=== PATIENT | male | born 1970 | race Caucasian/White ===

== ENCOUNTER 2023-11-21 09:57 | Observation (INO) | payer BC ==
--- NOTE | 2023-11-21 10:47 | ED ---
Abdominal Pain HPI - General Chief Complaint: Abdominal Pain Stated Complaint: Abd pain Time Seen by Provider: 11/21/23 10:02 Source: patient, RN notes reviewed Mode of arrival: EMS Limitations: no limitations - History of Present Illness Initial Comments: This is a 53-year-old male who presents to the emergency department as a transfer from [facility] for further evaluation of possible malignancy. He presented to [facility] this morning for right flank pain that began 2-3 days ago. It started as a dull aching sensation that seemed to continue getting worse. Pain began to radiate down into the right groin region. Denies any nausea/vomiting, urinary symptoms, or changes in bowel habits. States that when he underwent workup there, he had an elevated white blood cell count and CT scan findings concerning for lymphoma. They compared the CT scan with one that he had done in 2019 revealing mesenteric and retroperitoneal lymphadenopathy concerning for metastatic disease or lymphoma. Patient underwent a PET scan after those results, which was negative for any sign of malignancy. Given the concerning findings on today's imaging as well as leukocytosis with predominantly lymphocytes, there is concern about today's findings being related to lymphoma. Patient requested a more immediate hem/onc consultation, and was subsequently transferred here for further evaluation. Patient was given Toradol by EMS on route, which is effectively controlling his pain. MD Complaint: abdominal pain, flank pain - Related Data Home Medications Medication Instructions Recorded Confirmed No Known Home Medications 11/21/23 11/21/23 Allergies Allergy/AdvReac Type Severity Reaction Status Date / Time No Known Allergies Allergy Verified 11/21/23 11:44 Review of Systems ROS Statement: Those systems with pertinent positive or pertinent negative responses have been documented in the HPI. ROS Other: All systems not noted in ROS Statement are negative. Past Medical History Past Medical History: Hypertension Additional Past Medical History / Comment(s): sinus issues, pre diabetes, History of Any Multi-Drug Resistant Organisms: None Reported Past Surgical History: No Surgical Hx Reported Past Psychological History: No Psychological Hx Reported Smoking Status: Never smoker Past Alcohol Use History: Occasional Past Drug Use History: None Reported General Exam Limitations: no limitations General appearance: alert, in no apparent distress Head exam: Present: atraumatic, normocephalic, normal inspection Respiratory exam: Present: normal lung sounds bilaterally. Absent: respiratory distress, wheezes, rales, rhonchi, stridor Cardiovascular Exam: Present: regular rate, normal rhythm, normal heart sounds. Absent: systolic murmur, diastolic murmur, rubs, gallop, clicks GI/Abdominal exam: Present: soft, normal bowel sounds. Absent: distended, tenderness, guarding, rebound, rigid Back exam: Present: CVA tenderness (R). Absent: CVA tenderness (L) Neurological exam: Present: alert, oriented X3, CN II-XII intact Psychiatric exam: Present: normal affect, normal mood Skin exam: Present: warm, dry, intact, normal color. Absent: rash Course Vital Signs 11/21/23 11/21/23 10:01 13:35 Temperature 97.9 F Pulse Rate 70 82 Respiratory 18 16 Rate Blood Pressure 130/84 125/87 O2 Sat by Pulse 98 97 Oximetry Medical Decision Making - Medical Decision Making This is a 53-year-old male who presents to the emergency department for right flank pain. Was pt. sent in by a medical professional or institution? @ -[facility] Did you speak to anyone other than the patient for history? @ -No Did you review nursing and triage notes? @ -Yes, and I agree, it is accurate with regards to the patient's symptoms. Were old charts reviewed? @ -Outside records sent with the patient from [facility]. Lab work remarkable for a WBC of 25.3 and 74% lymphocytes. CT scan of the abdomen/pelvis from today demonstrates extensive abdominal mesenteric retroperitoneal and bilateral groin lymphadenopathy concerning for neoplasm such as lymphoma. There was no evidence of hydronephrosis or hydroureter. Differential Diagnosis? @ -Differential Flank Pain: UTI, pyelonephritis, kidney stone, musculoskeletal, pancreatitis, cholecystitis, this is not meant to be an all-inclusive list. EKG interpreted by me (3pts min.)? @ -Not obtained X-rays interpreted by me (1pt min.)? @ -Not obtained CT interpreted by me (1pt min.)? @ -Not obtained - performed at outside facility U/S interpreted by me (1pt. min.)? @ -Not obtained What testing was considered but not performed? (CT, X-rays, U/S, labs)? Why? @ -None What meds were considered but not given? Why? @ -None Did you discuss the management of the patient with other professionals? @ -Yes, Dr. Feliz, who accepts the patient for admission. Did you reconcile home meds? @ -Yes Was smoking cessation discussed for >3mins.? @ -No Was critical care preformed (if so, how long)? @ -No Were there social determinants of health that impacted care today? How? (Homelessness, low income, unemployed, alcoholism, drug addiction, transportation, low edu. Level, literacy, decrease access to med. care, long-term, rehab)? @ -No Was there de-escalation of care discussed even if they declined? (Discuss DNR or withdrawal of care, Hospice)? @ -No What co-morbidities impacted this encounter? (DM, HTN, Smoking, COPD, CAD, Cancer, CVA, Hep., AIDS, mental health diagnosis, sleep apnea, morbid obesity)? @ -HTN Was patient admitted / discharged? @ -Admitted. Outside records sent with the patient from [facility] were thoroughly reviewed. Imaging sent with the patient was also scanned into the system for review. Patient will be admitted for hem/onc evaluation related to abnormal CT scan findings concerning for lymphoma. Patient admitted to medicine and consultation for hem/onc was placed. Lab work and UA ordered for baseline in our system. Results pending at the time of admission. Undiagnosed new problem with uncertain prognosis? @ -None Drug Therapy requiring intensive monitoring for toxicity (Heparin, Nitro, Insulin, Cardizem)? @ -None Were any procedures done? @ -None Diagnosis/symptom? @ -Mesenteric lymphadenopathy, diffuse lymphadenopathy Acute, or Chronic, or Acute on Chronic? @ -Acute Uncomplicated (without systemic symptoms) or Complicated (systemic symptoms)? @ -Complicated Side effects of treatment? @ -None Exacerbation, Progression, or Severe Exacerbation] @ -Not applicable Poses a threat to life or bodily function? @ -Yes, this could be life threatening if it is related to malignancy such as lymphoma. This case was discussed in detail with the attending ED physician, Dr. Brown. Presentation, findings, and treatment plan discussed in detail as well. - Lab Data Result diagrams: 11/21/23 10:27 11/21/23 10:27 Lab Results 11/21/23 11/21/23 11/21/23 Range/Units 10:27 10: 10:27 WBC 23.3 H (3.8-10.6) k/uL RBC 5.44 (4.30-5.90) m/uL Hgb 16.7 (13.0-17.5) gm/dL Hct 48.5 (39.0-53.0) % MCV 89.2 (80.0-100.0) fL MCH 30.7 (25.0-35.0) pg MCHC 34.4 (31.0-37.0) g/dL RDW 13.0 (11.5-15.5) % Plt Count 157 (150-450) k/uL MPV 9.4 Neutrophils % (Manual) 17 % Lymphocytes % (Manual) 81 % Monocytes % (Manual) 1 % Eosinophils % (Manual) 1 % Neutrophils # (Manual) 3.96 (1.3-7.7) k/uL Lymphocytes # (Manual) 18.87 H (1.0-4.8) k/uL Monocytes # (Manual) 0.23 (0-1.0) k/uL Eosinophils # (Manual) 0.23 (0-0.7) k/uL Nucleated RBCs 0 (0-0) /100 WBC Manual Slide Review Performed Pathologist Review See comment A Sodium 138 (137-145) mmol/L Potassium 4.3 (3.5-5.1) mmol/L Chloride 110 H (98-107) mmol/L Carbon Dioxide 22 (22-30) mmol/L Anion Gap 6 mmol/L BUN 14 (9-20) mg/dL Creatinine 0.56 L (0.66-1.25) mg/dL Est GFR (CKD-EPI)AfAm >90 (>60 ml/min/1.73 sqM) Est GFR (CKD-EPI)NonAf >90 (>60 ml/min/1.73 sqM) Glucose 106 H (74-99) mg/dL Calcium 8.8 (8.4-10.2) mg/dL Total Bilirubin 0.9 (0.2-1.3) mg/dL AST 26 (17-59) U/L ALT 22 (4-49) U/L Alkaline Phosphatase 72 (38-126) U/L Lactate Dehydrogenase (120-246) U/L Total Protein 6.8 (6.3-8.2) g/dL Albumin 4.1 (3.5-5.0) g/dL Urine Color Yellow Urine Appearance Cloudy (Clear) Urine pH 5.5 (5.0-8.0) Ur Specific Murchison 1.029 (1.001-1.035) Urine Protein Negative (Negative) Urine Glucose (UA) Negative (Negative) Urine Ketones Negative (Negative) Urine Blood Negative (Negative) Urine Nitrite Negative (Negative) Urine Bilirubin Negative (Negative) Urine Urobilinogen <2.0 (<2.0) mg/dL Ur Leukocyte Esterase Negative (Negative) Urine WBC 1 (0-5) /hpf Ur Squamous Epith Cells <1 (0-4) /hpf Urine Mucus Moderate H (None) /hpf 11/21/23 Range/Units 10:27 WBC (3.8-10.6) k/uL RBC (4.30-5.90) m/uL Hgb (13.0-17.5) gm/dL Hct (39.0-53.0) % MCV (80.0-100.0) fL MCH (25.0-35.0) pg MCHC (31.0-37.0) g/dL RDW (11.5-15.5) % Plt Count (150-450) k/uL MPV Neutrophils % (Manual) % Lymphocytes % (Manual) % Monocytes % (Manual) % Eosinophils % (Manual) % Neutrophils # (Manual) (1.3-7.7) k/uL Lymphocytes # (Manual) (1.0-4.8) k/uL Monocytes # (Manual) (0-1.0) k/uL Eosinophils # (Manual) (0-0.7) k/uL Nucleated RBCs (0-0) /100 WBC Manual Slide Review Pathologist Review Sodium (137-145) mmol/L Potassium (3.5-5.1) mmol/L Chloride (98-107) mmol/L Carbon Dioxide (22-30) mmol/L Anion Gap mmol/L BUN (9-20) mg/dL Creatinine (0.66-1.25) mg/dL Est GFR (CKD-EPI)AfAm (>60 ml/min/1.73 sqM) Est GFR (CKD-EPI)NonAf (>60 ml/min/1.73 sqM) Glucose (74-99) mg/dL Calcium (8.4-10.2) mg/dL Total Bilirubin (0.2-1.3) mg/dL AST (17-59) U/L ALT (4-49) U/L Alkaline Phosphatase (38-126) U/L Lactate Dehydrogenase 262 H (120-246) U/L Total Protein (6.3-8.2) g/dL Albumin (3.5-5.0) g/dL Urine Color Urine Appearance (Clear) Urine pH (5.0-8.0) Ur Specific M[place] (1.001-1.035) Urine Protein (Negative) Urine Glucose (UA) (Negative) Urine Ketones (Negative) Urine Blood (Negative) Urine Nitrite (Negative) Urine Bilirubin (Negative) Urine Urobilinogen (<2.0) mg/dL Ur Leukocyte Esterase (Negative) Urine WBC (0-5) /hpf Ur Squamous Epith Cells (0-4) /hpf Urine Mucus (None) /hpf - Radiology Data Radiology results: report reviewed, image reviewed Disposition Clinical Impression: Mesenteric lymphadenopathy, Diffuse lymphadenopathy Disposition: ADMITTED IP TO THIS [facility] Time of Disposition: 11:12
[2023-11-21 10:48] LABS: ALT 22 U/L (4-49); AST 26 U/L (17-59); African American GFR (CKD) >90 (>60 ml/min/1.73 sqM); Albumin 4.1 g/dL (3.5-5.0); Alkaline Phosphatase 72 U/L (38-126); Anion Gap 6 mmol/L; Blood Urea Nitrogen 14 mg/dL (9-20); Calcium 8.8 mg/dL (8.4-10.2); Carbon Dioxide 22 mmol/L (22-30); Chloride 110 mmol/L (98-107); Glucose 106 mg/dL (74-99); Non-African American GFR(CKD) >90 (>60 ml/min/1.73 sqM); Potassium 4.3 mmol/L (3.5-5.1); Sodium 138 mmol/L (137-145); Total Bilirubin 0.9 mg/dL (0.2-1.3); Total Protein 6.8 g/dL (6.3-8.2)
[2023-11-21 10:50] LABS: HCT 48.5 % (39.0-53.0); HGB 16.7 gm/dL (13.0-17.5); MCH 30.7 pg (25.0-35.0); MCHC 34.4 g/dL (31.0-37.0); MCV 89.2 fL (80.0-100.0); Mean Platelet Volume 9.4; Platelet Count 157 k/uL (150-450); RBC 5.44 m/uL (4.30-5.90); WBC 23.3 k/uL (3.8-10.6)
[2023-11-21] MEDS ORDERED: ONDANSETRON 4 MG/2 ML VIAL IVP PRN (11:13)
[2023-11-21] MEDS ORDERED: ACETAMINOPHEN TAB 325 MG TAB PO PRN (11:13)
[2023-11-21] MEDS ORDERED: NALOXONE 0.4 MG/ML 1 ML VIAL IV PRN (11:13)
[2023-11-21] MEDS ORDERED: KETOROLAC 15 MG/ML 1 ML VIAL IVP PRN (11:13)
[2023-11-21] MEDS ORDERED: MORPHINE SULFATE 4 MG/ML SYRINGE IV PRN (11:13)
[2023-11-21 12:15] LABS: Appearance,Urine Cloudy (Clear); Bilirubin,Urine Negative (Negative); Blood,Urine Negative (Negative); Color,Urine Yellow; Glucose,Urine (UA) Negative (Negative); Ketones,Urine Negative (Negative); Leukocyte Esterase,Urine Negative (Negative); Mucus,Urine Moderate /hpf; Nitrite,Urine Negative (Negative); PH, Urine 5.5 (5.0-8.0); Protein,Urine Negative (Negative); Specific Gravity,Urine 1.029 (1.001-1.035); Squamous Epithelial Cell,Urine <1 /hpf (0-4); Urobilinogen,Urine <2.0 mg/dL (<2.0); WBC,Urine 1 /hpf (0-5)
[2023-11-21 13:13] LABS: Eosinophils # (M) 0.23 k/uL (0-0.7); Lymphocytes # (M) 18.87 k/uL (1.0-4.8); Monocytes # (M) 0.23 k/uL (0-1.0); Neutrophils # (M) 3.96 k/uL (1.3-7.7); Neutrophils % (M) 17 %; Nucleated Red Blood Cells 0 /100 WBC (0-0); Total Cells Counted 100
[2023-11-21] MEDS ORDERED: IOPAMIDOL CONTRAST (ORAL USE) VIAL PO PRN (16:24)
[2023-11-21] MEDS: HEPARIN SODIUM,PORCINE 5,000 UNIT/ML 1 ML VIAL SQ SCH (16:30)
[2023-11-21] MEDS: FAMOTIDINE 20 MG TAB PO SCH (20:11)
--- NOTE | 2023-11-21 22:52 | P.HPIM ---
History of Present Illness H&P Date: 11/21/23 Chief Complaint: Right flank pain Patient is a 53-year-old male with a past medical history of hypertension, diet- controlled diabetes type 2 was transferred from [facility] due to CT findings of extensive abdominal lymphadenopathy/possible malignancy. Patient presented to [facility] due to complaints of right sided back pain below the rib cage and across the right flank and groin region. Patient has been having pain for the past 2 to 3 days. Dull aching sensation and continues to get worse which made him go to ER. Patient had CT of the abdomen pelvis without contrast showed numerous enlarged lymph nodes up to 1.7 cm involving the mesentery, retroperitoneal and inguinal lymph nodes concerning for malignancy/lymphoma. No evidence of hydronephrosis. Patient otherwise denies any complaints of fever or chills. Denies any night sweats. No recent weight loss. Denies any dysuria or hematuria. No cough or sputum production. No nausea vomiting or abdominal pain or diarrhea. Denies any recent illnesses. Patient did have prior history of COVID-19 infection. Patient states that he had a CT of the abdomen pelvis at [facility] in 2019 which was showing mesenteric and retroperitoneal lymphadenopathy concerning for malignancy. Patient underwent PET scan and was told it was negative for any signs of malignancy. Patient also found to have elevated WBC count at 23.3 predominantly lymphocytes. Patient was sent to [facility] ER to be evaluated by oncology and further management. Laboratory data showed WBC 23.3 hemoglobin 16.7 and platelets 157 and lymphocytes 18.87. Sodium 138 potassium 4.3 chloride 110 bicarb is 22 BUN 14 and creatinine 0.56 and blood sugar 106 and LDH 262 AST 26 ALT 22 alk phos 72 and urinalysis negative for infection. Review of Systems Constitutional: Patient denies any fever or chills . no Generalized weakness. Denies any night sweats. No loss of weight. Abdomen: Patient denied any nausea or vomiting. Patient does have right flank pain, back pain and groin pain. No diarrhea. Cardiovascular: Patient denies any chest pain or short of breath no palpitations. Respiratory: patient denied any cough . no sputum production. No shortness of breath Neurologic: Patient denied any numbness or tingling or headache. Musculoskeletal: Patient denies any complaints of joint swelling or deformity. Skin: Negative Psychiatric: Negative Endocrine: No heat or cold intolerance. No recent weight gain. Genitourinary: No dysuria or hematuria. All other 14 point ROS negative except the above Past Medical History Past Medical History: Hypertension Additional Past Medical History / Comment(s): sinus issues, pre diabetes, History of Any Multi-Drug Resistant Organisms: None Reported Past Surgical History: No Surgical Hx Reported Past Psychological History: No Psychological Hx Reported Smoking Status: Never smoker Past Alcohol Use History: Occasional Past Drug Use History: None Reported Medications and Allergies Home Medications Medication Instructions Recorded Confirmed Type No Known Home Medications 11/21/23 11/21/23 History Allergies Allergy/AdvReac Type Severity Reaction Status Date / Time No Known Allergies Allergy Verified 11/21/23 11:44 Physical Exam Vitals: Vital Signs Temp Pulse Resp BP Pulse Ox 11/21/23 13:35 82 16 125/87 97 11/21/23 10:01 97.9 F 70 18 130/84 98 Intake and Output 11/20/23 11/21/23 11/21/23 22:59 06:59 14:59 Other: Weight 95.254 kg PHYSICAL EXAMINATION: Patient is lying in the bed comfortably, no acute distress, awake alert and oriented.. HEENT: Normocephalic. Neck is supple. Pupils reactive. Nostrils clear. Oral cavity is moist. Neck reveals no JVD, carotid bruits, or thyromegaly. CHEST EXAMINATION: Trachea is central. Symmetrical expansion. Bibasilar diminished sounds. No wheezing or rhonchi.. CARDIAC: Normal S1, S2 with no gallops. No murmurs ABDOMEN: Soft. Bowel sounds present. Mild right flank tenderness.. No organomegaly. No abdominal bruits. Extremities: reveal no edema. No clubbing or cyanosis Neurologically awake, alert, oriented x3 with well-coordinated movements. No f ocal deficits noted Skin: No rash or skin lesions. Psychiatric: Coperative. Nonsuicidal, Musculoskeletal: No joint swelling or deformity. Normal range of motion. Results CBC & Chem 7: 11/21/23 10:27 11/21/23 10:27 Labs: Abnormal Lab Results - Last 24 Hours (Table) 11/21/23 11/21/23 11/21/23 Range/Units 10:27 10:27 10:27 WBC 23.3 H (3.8-10.6) k/uL Lymphocytes # (Manual) 18.87 H (1.0-4.8) k/uL Chloride 110 H (98-107) mmol/L Creatinine 0.56 L (0.66-1.25) mg/dL Glucose 106 H (74-99) mg/dL Urine Mucus Moderate H (None) /hpf Thrombosis Risk Factor Assmnt - DVT/VTE Prophylaxis DVT/VTE Prophylaxis: Pharmacologic Prophylaxis ordered Assessment and Plan Assessment: Right sided back pain, flank pain radiating down to groin with extensive mesenteric, retroperitoneal and inguinal lymphadenopathy along with leukocytosis with predominant lymphocytes. Concerning for malignancy/lymphoma. Prior history of abdominal lymphadenopathy and PET scan. Patient was told neg ative for malignancy. Hypertension Diet-controlled diabetes GI and DVT prophylaxis. With PPI and heparin subcu Plan: Patient will be continued on pain management. Continue with gentle IV hydration. Was seen by oncology and recommended CT abdomen pelvis with contrast and CT neck, chest with contrast. Urinalysis is negative for infection. Continue to follow closely. Discussed with the family at bedside in detail. Time with Patient: Greater than 30
--- NOTE | 2023-11-21 22:58 | P.CONS ---
History of Present Illness - Reason for Consult Consult date: 11/21/[address] Requesting physician: Joie Corona - Chief Complaint back pain - History of Present Illness This is a 53-year-old male who presents to the emergency department as a transfer from [facility] for further evaluation of possible ma lignancy noted on CT scan. He presented to [facility] for right lower/mid back pain that has been persisting over the last 1 week, but began to become severe over the last 24 hours. He initially thought he pulled a muscle in his back at work but became worried when pain began to worsen. Denies abdominal pain, n/v/d, fever and chills. Denies bowel changes. Denies urinary complaints. Patient had CT AP w/o contrast at [place] showing abnormal abdominal lymphadenopathy, with leukocytosis and lymphocytosis noted on CBC at which time he was transferred to [facility] for further evaluation. Of note patient states in [address] scan which revealed mesenteric and retroperitoneal lympha denopathy that was concerning for metastatic disease or lymphoma. He subsequently underwent PET CT but per pt scan was negative and has not had f/u for the same since. He denies constitutional symptoms of unintentional weight loss and night sweats. Denies personal history of cancer. There is family history of cancer. Sister had breast cancer and uncle had throat cancer. CBC on admission revealed WBC 23.3, Hgb 16.7. plt 157,000. Differential revealed lymphocytosis at 18.8. Pathologist notes reported increased smudge cells. Review of Systems 10 point ROS is negative except as stated in the HPI Past Medical History Past Medical History: Hypertension Additional Past Medical History / Comment(s): sinus issues, pre diabetes, History of Any Multi-Drug Resistant Organisms: None Reported Past Surgical History: No Surgical Hx Reported Past Psychological History: No Psychological Hx Reported Smoking Status: Never smoker Past Alcohol Use History: Occasional Past Drug Use History: None Reported Medications and Allergies Home Medications Medication Instructions Recorded Confirmed Type No Known Home Medications 11/21/23 11/21/23 History Allergies Allergy/AdvReac Type Severity Reaction Status Date / Time No Known Allergies Allergy Verified 11/21/23 11:44 Physical Exam Vitals: Vital Signs Temp Pulse Resp BP Pulse Ox 11/21/23 10:01 97.9 F 70 18 130/84 98 Intake and Output 11/20/23 11/21/23 11/21/23 22:59 06:59 14:59 Other: Weight 95.254 kg - Constitutional General appearance: average body habitus, no acute distress - EENT Eyes: anicteric sclerae ENT: hearing grossly normal - Neck Neck: no lymphadenopathy - Respiratory Respiratory: bilateral: CTA - Cardiovascular Rhythm: regular Heart sounds: normal: S1, S2 - Gastrointestinal General gastrointestinal: no organomegaly, soft, no tenderness - Genitourinary small palpable lymph node in left groin Male genitourinary: left inguinal lymphadenopathy - Integumentary Integumentary: no cyanotic, no jaundiced - Neurologic Neurologic: CNII-XII intact - Musculoskeletal Musculoskeletal: strength equal bilaterally - Psychiatric Psychiatric: A&O x's 3 Results CBC & Chem 7: 11/21/23 10:27 11/21/23 10:27 Labs: Abnormal Lab Results - Last 24 Hours (Table) 11/21/23 11/21/23 11/21/23 Range/Units 10:27 10:27 10:27 WBC 23.3 H (3.8-10.6) k/uL Chloride 110 H (98-107) mmol/L Creatinine 0.56 L (0.66-1.25) mg/dL Glucose 106 H (74-99) mg/dL Urine Mucus Moderate H (None) /hpf CT scan - abdomen: report reviewed CT scan - pelvis: report reviewed Assessment and Plan (1) Mesenteric lymphadenopathy Current Visit: Yes Status: Acute Priority: High Code(s): R59.0 - LOCALIZED ENLARGED LYMPH NODES SNOMED Code(s): 310882050 (2) Lymphocytosis Current Visit: Yes Status: Acute Priority: High Code(s): D72.820 - LYMPHOCYTOSIS (SYMPTOMATIC) SNOMED Code(s): 47578830 Plan: Lymphadenopathy/Luekocytosis -Presented c/o right lower/mid back pain. CT AP w/o contrast at [facility] showed abnormal abdominal lymphadenopathy, with leukocytosis and lymphocytosis noted on CBC. Of note patient states in [address] scan which revealed mesenteric and retroperitoneal lymphadenopathy that was concerning for metastatic disease or lymphoma. He subsequently underwent PET CT but per pt scan was negative and has not had f/u for the same since. Denies constitutional symptoms of unintentional weight loss and night sweats. Denies personal history of cancer. There is family history of cancer. Sister had breast cancer and uncle had throat cancer. -CBC on admission revealed WBC 23.3, Hgb 16.7. plt 157,000. Differential revealed lymphocytosis, with absolute lymphocytes of 18.8. Pathologist notes reported increased smudge cells. Differential includes CLL vs lymphoma -Results and concerns for malignancy were discussed with patient and family -Will obtain CT neck and CAP with contrast for further evaluation -LDH and B and T cell flow cytometry ordered -Will provide further recommendations pending workup Attests: I have seen and examined pt, performed H&P, developed impression and plan of care. Discussed with dictator. Agree with documentation, dictated as a scribe.
[2023-11-21] MEDS: SODIUM CHLORIDE 0.9% 1,000 ML IV SCH (23:06)
--- NOTE | 2023-11-22 08:31 | CT ---
EXAMINATION TYPE: CT abdomen pelvis w con DATE OF EXAM: 11/21/2023 COMPARISON: HISTORY: abnormal abd. lymphadenopathy CT DLP: 2093.1 mGycm CONTRAST: CT scan of the abdomen and pelvis is performed with Oral Contrast and with IV Contrast, patient injec jania with 100 cc mL of Isovue 300. FINDINGS: LUNG BASES-: No visible nodule. No infiltrate. LIVER/GB: No calcified gallstones. No space occupying hepatic lesion. Biliary tree is of normal ca liber. PANCREAS: No inflammation. No distinct mass. SPLEEN: The spleen is enlarged with AP maximal dimension of 14.6 cm. ADRENALS: No nodule. No thickening. KIDNEYS/BLADDER: No hydronephrosis. No nephrolithiasis. No distinct renal mass. Urinary bladder g rossly unremarkable. BOWEL: Normal appendix. Normal bowel caliber. No inflammation. GENITAL ORGANS: No gross abnormality. LYMPH NODES: Multiple enlarged mesenteric lymph nodes measuring up to 2.5 cm. Periportal adenopathy m easuring up to 1.6 cm. Para-aortic adenopathy measuring up to 2 cm. Aorto intracaval adenopathy measu ring up to 1.7 cm. Retrocaval adenopathy measuring up to 2 cm. Adenopathy extends up to the level of the aortic bifurcation. Mildly prominent lymph node right common iliac chain measuring 1.1 cm. Caisson Worker al iliac chain adenopathy on the left measuring 1.2 cm. External iliac chain adenopathy and the right measuring 2.4 cm and on the left 1.7 cm. Subcentimeter lymph nodes seen within the inguinal regions bilaterally. AORTA: No significant abnormality. OSSEOUS STRUCTURES: No significant abnormality is seen. OTHER: Fat-containing hernias of the bilateral inguinal regions. IMPRESSION: 1. Adenopathy and splenomegaly as discussed. Correlate for lymphoma or leukemia.
--- NOTE | 2023-11-22 08:41 | CT ---
EXAMINATION TYPE: CT neck chest w con DATE OF EXAM: 11/21/2023 COMPARISON: None HISTORY: lymphadenopathy CT DLP: 1847.1 mGycm CONTRAST: CT scan of the neck is performed with IV Contrast, patient injected with 100cc mL of Isovue 300. Contrast enhanced CT of the neck was performed from the skull base through the lung apices. AIRWAY: The supraglottic, glottic, and subglottic portions of the airway appear patent and free of mass. SALIVARY GLANDS: The submandibular and parotid glands are free of mass or inflammatory process. THYROID GLAND: No nodules or masses seen. LYMPH NODES: Adenopathy right internal jugular chain with an enlarged lymph node measuring 1.3 cm. 1. 1 cm enlarged lymph node left internal jugular chain. Submandibular adenopathy noted on the right sheldon suring 1.7 cm with multiple sub-1 cm lymph nodes about the left submandibular gland. Posterior triang le lymph nodes measuring up to 9 mm. Multiple bilateral supraclavicular lymph nodes all measuring les s than 1 cm. LUNG APICES: No nodule or mass is seen. OTHER: Vascular structures are patent. No significant degenerative change of the cervical spine. N o abscess seen. IMPRESSION: 1. Adenopathy as discussed. EXAMINATION TYPE: CT neck chest w con DATE OF EXAM: 11/21/2023 COMPARISON: None HISTORY: lymphadenopathy CT DLP: 1847.1 mGycm Automated exposure control for dose reduction was used. CONTRAST: CT scan of the chest is performed with IV Contrast, patient injected with 100cc mL of Isovue 300. FINDINGS: LUNGS: The lungs are grossly clear, there is no concerning parenchymal mass or nodule identified. T here is no pleural effusion or pneumothorax seen. The tracheobronchial tree is patent. MEDIASTINUM: There is subcarinal adenopathy measuring 1.9 cm. Precarinal adenopathy noted measuring 1 .4 cm. Low right paratracheal adenopathy measuring 1.2 cm. Subcentimeter high right paratracheal vernon opathy. Subcentimeter AP window lymph nodes and axillary lymph nodes seen. No definite hilar adenopat hy seen at this time. No pericardial effusion is seen. Thoracic aorta is of normal caliber. The hear t is not enlarged. UPPER ABDOMEN: No significant abnormality appreciated. OTHER: No additional significant abnormality is seen. IMPRESSION: 1. Adenopathy as discussed.
[2023-11-22 09:08] LABS: ALT 22 U/L (4-49); AST 53 U/L (17-59); African American GFR (CKD) >90 (>60 ml/min/1.73 sqM); Albumin/Globulin Ratio 1.5; Alkaline Phosphatase 74 U/L (38-126); Anion Gap 5 mmol/L; Blood Urea Nitrogen 12 mg/dL (9-20); Calcium 9.1 mg/dL (8.4-10.2); Carbon Dioxide 25 mmol/L (22-30); Chloride 109 mmol/L (98-107); Globulin 2.6 g/dL; Glucose 114 mg/dL (74-99); Non-African American GFR(CKD) >90 (>60 ml/min/1.73 sqM); Potassium 4.6 mmol/L (3.5-5.1); Sodium 139 mmol/L (137-145); Total Bilirubin 0.9 mg/dL (0.2-1.3); Total Protein 6.6 g/dL (6.3-8.2)
[2023-11-22 10:28] LABS: Basophils # (M) 0 X 10*3/uL (0.00-0.10); Eosinophils # (M) 0.23 X 10*3/uL (0.04-0.35); HCT 48.4 % (39.6-50.0); HGB 16.2 g/dL (13.0-17.0); Lymphocytes # (M) 7.24 X 10*3/uL (0.90-5.00); MCH 29.1 pg (27.0-32.0); MCHC 33.5 g/dL (32.0-37.0); MCV 87.1 FL (80.0-97.0); Mean Platelet Volume 11.2 FL (9.5-12.2); Monocytes # (M) 1.13 X 10*3/uL (0.20-1.00); NRBC Per 100 WBC 0.02 X 10*3/uL (0.00-0.01); Neutrophils % (M) 57 %; Platelet Count 161 X 10*3/uL (140-440); RBC 5.56 X 10*6/uL (4.40-5.60); RBC Morphology Normal (Normal); Smudge Cells Present; WBC 22.64 X 10*3/uL (4.50-10.00)
--- NOTE | 2023-11-24 01:21 | P.PN ---
Subjective Progress Note Date: 11/22/23 Patient is a 53-year-old male with a past medical history of hypertension, diet- controlled diabetes type 2 was transferred from [facility] due to CT findings of extensive abdominal lymphadenopathy/possible malignancy. Patient presented to [facility] due to complaints of right sided back pain below the rib cage and across the right flank and groin region. Patient has been having pain for the past 2 to 3 days. Dull aching sensation and continues to get worse which made him go to ER. Patient had CT of the abdomen pelvis without contrast showed numerous enlarged lymph nodes up to 1.7 cm involving the mesentery, retroperitoneal and inguinal lymph nodes concerning for malignancy/lymphoma. No evidence of hydronephrosis. Patient otherwise denies any complaints of fever or chills. Denies any night sweats. No recent weight loss. Denies any dysuria or hematuria. No cough or sputum production. No nausea vomiting or abdominal pain or diarrhea. Denies any recent illnesses. Patient did have prior history of COVID-19 infection. Patient states that he had a CT of the abdomen pelvis at [facility] in 2019 which was showing mesenteric and retroperitoneal lymphadenopathy concerning for malignancy. Patient underwent PET scan and was told it was negative for any signs of malignancy. Patient also found to have elevated WBC count at 23.3 predominantly lymphocytes. Patient was sent to [facility] ER to be evaluated by oncology and further management. Laboratory data showed WBC 23.3 hemoglobin 16.7 and platelets 157 and lymphocytes 18.87. Sodium 138 potassium 4.3 chloride 110 bicarb is 22 BUN 14 and creatinine 0.56 and blood sugar 106 and LDH 262 AST 26 ALT 22 alk phos 72 and urinalysis negative for infection. 11/22/2023 Patient is currently resting in bed. Awake alert and oriented x 3. No complaints of chest pain or shortness of breath. No fever no chills. No headache or dizziness or lightheadedness. Right lower back pain and abdominal pain is much improved with pain medications. Laboratory data showed WBC 22.6 hemoglobin 16.2 and platelets 161 and lymphocytes 7.24 BUN 12 and creatinine 0.64 sodium 139 potassium 4.6 and chlor shila 109. Cytometry pending and also CT of the chest, abdomen/pelvis is pending. Oncology is on board. Current medications reviewed. Objective - Vital Signs Vital signs: Vital Signs Temp 97.6 F 11/22/23 07:35 Pulse 71 11/22/23 09:20 Resp 18 11/22/23 09:20 BP 142/88 11/22/23 07:35 Pulse Ox 98 11/22/23 07:35 FiO2 Intake & Output 11/21/23 11/22/23 11/22/23 18:59 06:59 18:59 Intake Total 0 950 Balance 0 950 Weight 97.522 kg Intake: Oral 0 950 Other: # Voids 1 1 - Exam PHYSICAL EXAMINATION: Patient is lying in the bed comfortably, no acute distress, awake alert and oriented.. HEENT: Normocephalic. Neck is supple. Pupils reactive. Nostrils clear. Oral cavity is moist. Neck reveals no JVD, carotid bruits, or thyromegaly. CHEST EXAMINATION: Trachea is central. Symmetrical expansion. Bibasilar diminished sounds. No wheezing or rhonchi.. CARDIAC: Normal S1, S2 with no gallops. No murmurs ABDOMEN: Soft. Bowel sounds present. no flank tenderness.. No organomegaly. No abdominal bruits. Extremities: reveal no edema. No clubbing or cyanosis Neurologically awake, alert, oriented x3 with well-coordinated movements. No focal deficits noted Skin: No rash or skin lesions. Psychiatric: Coperative. Nonsuicidal, Musculoskeletal: No joint swelling or deformity. Normal range of motion. - Labs CBC & Chem 7: 11/22/23 07:06 11/22/23 07:06 Labs: Abnormal Lab Results - Last 24 Hours (Table) 11/21/23 11/22/23 11/22/23 Range/Units 10:27 07:06 07:06 WBC 22.64 H (4.50-10.00) X 10*3/uL Lymphocytes # (Manual) 7.24 H (0.90-5.00) X 10*3/uL Monocytes # (Manual) 1.13 H (0.20-1.00) X 10*3/uL NRBC/100 WBC Diff 0.02 H (0.00-0.01) X 10*3/uL Smudge Cells Present A Chloride 109 H (98-107) mmol/L Creatinine 0.64 L (0.66-1.25) mg/dL Glucose 114 H (74-99) mg/dL Lactate Dehydrogenase 262 H (120-246) U/L Assessment and Plan Assessment: Right sided back pain, flank pain radiating down to groin with extensive mesenteric, retroperitoneal and inguinal lymphadenopathy along with leukocytosis with predominant lymphocytes. Concerning for malignancy/lymphoma. Prior history of abdominal lymphadenopathy and PET scan. Patient was told negative for malignancy. Hypertension Diet-controlled diabetes GI and DVT prophylaxis. With PPI and heparin subcu Plan: Patient will be continued on pain management. was on gentle IV hydration. Was seen by oncology and recommended CT abdomen pelvis with contrast and CT neck, chest with contrast. Urinalysis is negative for infection. Continue to follow closely. Discussed with the family at bedside in detail.
--- NOTE | 2023-11-24 01:22 | P.PN ---
Subjective Progress Note Date: 11/23/23 Patient is a 53-year-old male with a past medical history of hypertension, diet- controlled diabetes type 2 was transferred from [facility] due to CT findings of extensive abdominal lymphadenopathy/possible malignancy. Patient presented to [facility] due to complaints of right sided back pain below the rib cage and across the right flank and groin region. Patient has been having pain for the past 2 to 3 days. Dull aching sensation and continues to get worse which made him go to ER. Patient had CT of the abdomen pelvis without contrast showed numerous enlarged lymph nodes up to 1.7 cm involving the mesentery, retroperitoneal and inguinal lymph nodes concerning for malignancy/lymphoma. No evidence of hydronephrosis. Patient otherwise denies any complaints of fever or chills. Denies any night sweats. No recent weight loss. Denies any dysuria or hematuria. No cough or sputum production. No nausea vomiting or abdominal pain or diarrhea. Denies any recent illnesses. Patient did have prior history of COVID-19 infection. Patient states that he had a CT of the abdomen pelvis at [facility] in 2019 which was showing mesenteric and retroperitoneal lymphadenopathy concerning for malignancy. Patient underwent PET scan and was told it was negative for any signs of malignancy. Patient also found to have elevated WBC count at 23.3 predominantly lymphocytes. Patient was sent to [facility] ER to be evaluated by oncology and further management. Laboratory data showed WBC 23.3 hemoglobin 16.7 and platelets 157 and lymphocytes 18.87. Sodium 138 potassium 4.3 chloride 110 bicarb is 22 BUN 14 and creatinine 0.56 and blood sugar 106 and LDH 262 AST 26 ALT 22 alk phos 72 and urinalysis negative for infection. 11/22/2023 Patient is currently resting in bed. Awake alert and oriented x 3. No complaints of chest pain or shortness of breath. No fever no chills. No headache or dizziness or lightheadedness. Right lower back pain and abdominal pain is much improved with pain medications. Laboratory data showed WBC 22.6 hemoglobin 16.2 and platelets 161 and lymphocytes 7.24 BUN 12 and creatinine 0.64 sodium 139 potassium 4.6 and chlor shila 109. Cytometry pending and also CT of the chest, abdomen/pelvis is pending. Oncology is on board. 11/23/2023 Patient is currently resting in the bed comfortably. Awake alert and oriented x 3. Denies any abdominal pain. No back pain or flank pain. No other acute overnight issues. Patient has been afebrile. Denies any dysuria or hematuria. CT of the abdomen pelvis with contrast showed adenopathy and splenomegaly and correlate for lymphoma or leukemia. CT neck and chest showed adenopathy, subcarinal measuring 1.9 cm and precarinal 1.4 cm. Low right paratracheal lymphadenopathy and subcentimeter high right paratracheal adenopathy. Oncology is on board and further workup is pending. Current medications reviewed. Objective - Vital Signs Vital signs: Vital Signs Temp 98.9 F 11/23/23 12:25 Pulse 83 11/23/23 12:25 Resp 16 11/23/23 12:25 BP 131/82 11/23/23 12:25 Pulse Ox 95 11/23/23 12:25 FiO2 Intake & Output 11/22/23 11/23/23 11/23/23 18:59 06:59 18:59 Intake Total 240 Balance 240 Intake: Oral 240 Other: # Voids 3 1 - Exam PHYSICAL EXAMINATION: Patient is lying in the bed comfortably, no acute distress, awake alert and oriented.. HEENT: Normocephalic. Neck is supple. Pupils reactive. Nostrils clear. Oral c avity is moist. Neck reveals no JVD, carotid bruits, or thyromegaly. CHEST EXAMINATION: Trachea is central. Symmetrical expansion. Bibasilar diminished sounds. No wheezing or rhonchi.. CARDIAC: Normal S1, S2 with no gallops. No murmurs ABDOMEN: Soft. Bowel sounds present. no flank tenderness.. No organomegaly. No abdominal bruits. Extremities: reveal no edema. No clubbing or cyanosis Neurologically awake, alert, oriented x3 with well-coordinated movements. No focal deficits noted Skin: No rash or skin lesions. Psychiatric: Coperative. Nonsuicidal, Musculoskeletal: No joint swelling or deformity. Normal range of motion. - Labs CBC & Chem 7: 11/22/23 07:06 11/22/23 07:06 Assessment and Plan Assessment: Right sided back pain, flank pain radiating down to groin with extensive mesenteric, retroperitoneal and inguinal lymphadenopathy along with leukocytosis with predominant lymphocytes. Concerning for malignancy/lymphoma. Prior history of abdominal lymphadenopathy and PET scan. Patient was told negative for malignancy. Hypertension Diet-controlled diabetes GI and DVT prophylaxis. With PPI and heparin subcu Plan: Patient will be continued on pain management. was on gentle IV hydration. Was seen by oncology , recommended CT abdomen pelvis with contrast and CT neck, chest with contrast. report reviwed. Urinalysis is negative for infection. Continue to follow closely. Discussed with the family at bedside in detail.
[2023-11-24 11:05] LABS: Blast Cells # (M) 1.13 k/uL (0)
[2023-11-24 11:09] LABS: Blood Urea Nitrogen 11.6 mg/dL (9.0-27.0); Calcium 9.4 mg/dL (8.7-10.3); Carbon Dioxide 25.3 mmol/L (21.6-31.8); Chloride 104 mmol/L (96-109); Glucose 120 mg/dL (70-110); Potassium 4.7 mmol/L (3.5-5.5); Sodium 138 mmol/L (135-145)
[2023-11-24 11:43] LABS: Basophils # (M) 0 X 10*3/uL (0.00-0.10); Blast Cells # (M) 0.45 k/uL (0); Eosinophils # (M) 0 X 10*3/uL (0.04-0.35); HCT 51.1 % (39.6-50.0); HGB 17.1 g/dL (13.0-17.0); Lymphocytes # (M) 15.24 X 10*3/uL (0.90-5.00); Lymphocytes Variant 2+; MCH 29.7 pg (27.0-32.0); MCHC 33.5 g/dL (32.0-37.0); MCV 88.9 FL (80.0-97.0); Mean Platelet Volume 12.1 FL (9.5-12.2); Monocytes # (M) 1.14 X 10*3/uL (0.20-1.00); NRBC Per 100 WBC 0 X 10*3/uL (0.00-0.01); Neutrophils # (M) 5.91 X 10*3/uL (1.80-7.70); Neutrophils % (M) 26 %; Platelet Count 144 X 10*3/uL (140-440); RBC 5.75 X 10*6/uL (4.40-5.60); WBC 22.74 X 10*3/uL (4.50-10.00)
--- NOTE | 2023-11-24 13:49 | P.PN ---
Subjective Progress Note Date: 11/24/23 Patient is a 53-year-old male with a past medical history of hypertension, diet- controlled diabetes type 2 was transferred from [facility] due to CT findings of extensive abdominal lymphadenopathy/possible malignancy. Patient presented to [facility] due to complaints of right sided back pain below the rib cage and across the right flank and groin region. Patient has been having pain for the past 2 to 3 days. Dull aching sensation and continues to get worse which made him go to ER. Patient had CT of the abdomen pelvis without contrast showed numerous enlarged lymph nodes up to 1.7 cm involving the mesentery, retroperitoneal and inguinal lymph nodes concerning for malignancy/lymphoma. No evidence of hydronephrosis. Patient otherwise denies any complaints of fever or chills. Denies any night sweats. No recent weight loss. Denies any dysuria or hematuria. No cough or sputum production. No nausea vomiting or abdominal pain or diarrhea. Denies any recent illnesses. Patient did have prior history of COVID-19 infection. Patient states that he had a CT of the abdomen pelvis at [facility] in 2019 which was showing mesenteric and retroperitoneal lymphadenopathy concerning for malignancy. Patient underwent PET scan and was told it was negative for any signs of malignancy. Patient also found to have elevated WBC count at 23.3 predominantly lymphocytes. Patient was sent to [facility] ER to be evaluated by oncology and further management. Laboratory data showed WBC 23.3 hemoglobin 16.7 and platelets 157 and lymphocytes 18.87. Sodium 138 potassium 4.3 chloride 110 bicarb is 22 BUN 14 and creatinine 0.56 and blood sugar 106 and LDH 262 AST 26 ALT 22 alk phos 72 and urinalysis negative for infection. 11/22/2023 Patient is currently resting in bed. Awake alert and oriented x 3. No complaints of chest pain or shortness of breath. No fever no chills. No headache or dizziness or lightheadedness. Right lower back pain and abdominal pain is much improved with pain medications. Laboratory data showed WBC 22.6 hemoglobin 16.2 and platelets 161 and lymphocytes 7.24 BUN 12 and creatinine 0.64 sodium 139 potassium 4.6 and chl oride 109. Cytometry pending and also CT of the chest, abdomen/pelvis is pending. Oncology is on board. 11/23/2023 Patient is currently resting in the bed comfortably. Awake alert and oriented x 3. Denies any abdominal pain. No back pain or flank pain. No other acute overnight issues. Patient has been afebrile. Denies any dysuria or hematuria. CT of the abdomen pelvis with contrast showed adenopathy and splenomegaly and correlate for lymphoma or leukemia. CT neck and chest showed adenopathy, subcarinal measuring 1.9 cm and precarinal 1.4 cm. Low right paratracheal lymphadenopathy and subcentimeter high right paratracheal adenopathy. Oncology is on board and further workup is pending. 11/24/2023 Patient is seen in follow-up today with oncology following and has ordered labs which are currently pending and awaiting results. Will discuss with oncology in regards to possible biopsy although would like to await lab results prior to this. White count remains about the same at 22.74, hemoglobin is 17.1, platelets are slightly lower at 144 otherwise BMP within normal limits. Patient is afebrile with no reported chest pain or shortness of breath. Patient reports some back pain which is currently controlled and not requiring pain medications. Will follow-up on repeat labs. Encouraged increase activity as tolerated. Review of systems: Constitutional: No reports of fatigue, fever, or chills Cardiovascular: No reports of chest pain or palpitations Respiratory: No reports of shortness of breath or cough GI: No reports of nausea, vomiting, or diarrhea : No reports of dysuria or retention Neurovascular: reports of some generalized back pain on the right All medications have been reviewed PHYSICAL EXAMINATION: Patient is currently lying in bed, awake alert and oriented.. Well-developed, well-nourished, obese HEENT: Normocephalic. Neck is supple. Pupils reactive. Nostrils clear. Oral cavity is moist. Neck reveals no JVD, carotid bruits, or thyromegaly. CHEST EXAMINATION: Trachea is central. Symmetrical expansion. Bibasilar diminished sounds. No wheezing or rhonchi.. CARDIAC: S1, S2 muffled ABDOMEN: Soft. Bowel sounds present. no flank tenderness.. No organomegaly. No abdominal bruits. Extremities: reveal no edema. No clubbing or cyanosis Neurologically awake, alert, oriented x3 with well-coordinated movements. No focal deficits noted Skin: No rash or skin lesions. Psychiatric: Cooperative. Non-suicidal, Musculoskeletal: No joint swelling or deformity. Normal range of motion. Assessment: Right sided back pain, flank pain radiating down to groin with extensive mesenteric, retroperitoneal and inguinal lymphadenopathy along with leukocytosis with predominant lymphocytes. Concerning for malignancy/lymphoma. Prior history of abdominal lymphadenopathy and PET scan. Patient was told negative for malignancy. Hypertension Diet-controlled diabetes Obesity with a BMI of 30.0 GI and DVT prophylaxis. With PPI and heparin subcu Full code Plan: Patient will be continued on pain management. Was seen by oncology , recommended CT abdomen pelvis with contrast and CT neck, chest with contrast. As well as additional labs which are currently pending. White count remains elevated and awaiting lab values prior to discussion of possible biopsy Urinalysis is negative for infection. Continue to follow closely. Encouraged increase activity as tolerated Will discuss further with oncology about treatment plan moving forward The impression and plan of care has been dictated by Oanh Polanco, Nurse Practitioner as directed. Dr. Sharan MD I have performed a history and examination and MDM of this patient, discussed the same with the dictator, and agree with the dictator's assessment and plan as written ,documented as a scribe. Based on total visit time, I have performed more than 50% of the visit. Objective - Vital Signs Vital signs: Vital Signs Temp 98.6 F 11/24/23 07:44 Pulse 78 11/24/23 07:44 Resp 16 11/24/23 07:44 BP 130/80 11/24/23 07:44 Pulse Ox 96 11/24/23 07:44 FiO2 Intake & Output 11/23/23 11/24/23 11/24/23 18:59 06:59 18:59 Intake Total 240 118 Balance 240 118 Intake: Oral 240 118 Other: # Voids 3 - Labs CBC & Chem 7: 11/24/23 06:45 11/24/23 06:45
--- NOTE | 2023-11-24 19:55 | P.PN ---
Subjective Progress Note Date: 11/24/23 At today's visit patient is resting comfortably in bed. Reports right lower/mid back pain is significant improved since admission. No other reported complaints at this time. WBC 22.7, with improvement in absolute lymphocytes at 15.2, yesterday 7.2. Monocytes at 1.14. Smudge cells present. B and T cell lymphocyte panel pending Objective - Vital Signs Vital signs: Vital Signs Temp 98.6 F 11/24/23 07:44 Pulse 78 11/24/23 07:44 Resp 16 11/24/23 07:44 BP 130/80 11/24/23 07:44 Pulse Ox 96 11/24/23 07:44 FiO2 Intake & Output 11/23/23 11/24/23 11/24/23 18:59 06:59 18:59 Intake Total 240 118 Balance 240 118 Intake: Oral 240 118 Other: # Voids 3 - Constitutional General appearance: Present: average body habitus, no acute distress - EENT Eyes: Present: anicteric sclerae, EOMI ENT: Present: hearing grossly normal - Respiratory Details: breathing even and unlabored - Cardiovascular Details: skin warm and dry - Integumentary Integumentary: Absent: cyanotic - Neurologic Neurologic: Present: CNII-XII intact - Musculoskeletal Musculoskeletal: Present: strength equal bilaterally - Psychiatric Psychiatric: Present: A&O x's 3 - Labs CBC & Chem 7: 11/24/23 06:45 11/24/23 06:45 Labs: Abnormal Lab Results - Last 24 Hours (Table) 11/22/23 11/24/23 11/24/23 Range/Units 07:06 06:45 06:45 WBC 22.74 H (4.50-10.00) X 10*3/uL RBC 5.75 H (4.40-5.60) X 10*6/uL Hgb 17.1 H (13.0-17.0) g/dL Hct 51.1 H (39.6-50.0) % Neutrophils # (Manual) 12.90 H (1.80-7.70) X 10*3/uL Lymphocytes # (Manual) 15.24 H (0.90-5.00) X 10*3/uL Monocytes # (Manual) 1.14 H (0.20-1.00) X 10*3/uL Eosinophils # (Manual) 0 L (0.04-0.35) X 10*3/uL Blast Cells # (Man) 1.13 H (0) k/uL Variant Lymphocytes 2+ A Glucose 120 H (70-110) mg/dL - Imaging and Cardiology CT scan - abdomen: report reviewed CT scan - chest: report reviewed CT scan - pelvis: report reviewed CT neck reviewed Assessment and Plan (1) Mesenteric lymphadenopathy Current Visit: Yes Status: Acute Priority: High Code(s): R59.0 - LOCALIZED ENLARGED LYMPH NODES SNOMED Code(s): 658742006 (2) Lymphocytosis Current Visit: Yes Status: Acute Priority: High Code(s): D72.820 - LYMPHOCYTOSIS (SYMPTOMATIC) SNOMED Code(s): 36496323 Plan: Lymphadenopathy/Luekocytosis -Presented c/o right lower/mid back pain. CT AP w/o contrast at [facility] showed abnormal abdominal lymphadenopathy, with leukocytosis and lymphocytosis noted on CBC. Of note patient states in [address] scan which revealed mesenteric and retroperitoneal lymphadenopathy that was concerning for metastatic disease or lymphoma. He subsequently underwent PET CT but per pt scan was negative and has not had f/u for the same since. Denies constitutional symptoms of unintentional weight loss and night sweats. Denies personal history of cancer. There is family history of cancer. Sister had breast cancer and uncle had throat cancer. -CBC on admission revealed WBC 23.3, Hgb 16.7. plt 157,000. Differential revealed lymphocytosis, with absolute lymphocytes of 18.8. Pathologist notes reported increased smudge cells. Differential includes CLL/SLL vs lymphoma -CT neck and CAP with contrast for further evaluation. Scans revealed abnormal lymphadenopathy within abdomen with splenomegaly, and lymphadenopathy within [address] and neck. -LDH mildly elevated at 262. B and T cell flow cytometry pending. Will hold on biopsy pending results of flow cytometry. -Will provide further recommendations pending workup. Spoke with IM team regarding plan Patient and family have been updated on results and POC
[2023-11-25 11:35] VITALS: BP 138/81; PULSE 79; RESP 15; TEMP 97.4
--- NOTE | 2023-11-25 16:09 | P.PN ---
Subjective Progress Note Date: 11/25/23 At today's visit patient is resting comfortably in bed. Reports right lower/mid back pain has significantly improved since admission. Is not requiring pain medications. No other reported complaints at this time. WBC 22.7, with absolute lymphocytes at 15.2. 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 Objective - Vital Signs Vital signs: Vital Signs Temp 97.4 F L 11/25/23 08:29 Pulse 79 11/25/23 08:29 Resp 15 11/25/23 08:29 BP 138/81 11/25/23 08:29 Pulse Ox 95 11/25/23 08:29 FiO2 Intake & Output 11/24/23 11/25/23 11/25/23 18:59 06:59 18:59 Intake Total 800 Output Total 1000 Balance -200 Intake: Oral 800 Output: Urine 1000 Other: Voiding Method Toilet # Voids 3 - Constitutional General appearance: Present: average body habitus, no acute distress - EENT Eyes: Present: anicteric sclerae, EOMI ENT: Present: hearing grossly normal - Respiratory Details: breathing is even and unlabored - Cardiovascular Details: skin warm and dry - Integumentary Integumentary: Absent: cyanotic - Neurologic Neurologic: Present: CNII-XII intact - Musculoskeletal Musculoskeletal: Present: strength equal bilaterally - Psychiatric Psychiatric: Present: A&O x's 3 - Labs CBC & Chem 7: 11/24/23 06:45 11/24/23 06:45 Labs: Abnormal Lab Results - Last 24 Hours (Table) 11/24/23 Range/Units 06:45 Blast Cells # (Man) 0.45 H (0) k/uL Assessment and Plan (1) Mesenteric lymphadenopathy Status: Acute Priority: High Code(s): R59.0 - LOCALIZED ENLARGED LYMPH NODES SNOMED Code(s): 013665537 (2) Lymphocytosis Status: Acute Priority: High Code(s): D72.820 - LYMPHOCYTOSIS (SYMPTOMATIC) SNOMED Code(s): 11094600 Plan: Lymphadenopathy/Luekocytosis -Presented c/o right lower/mid back pain. CT AP w/o contrast at [facility] showed abnormal abdominal lymphadenopathy, with leukocytosis and lymphocytosis noted on CBC. Of note patient states in [address] scan which revealed mesenteric and retroperitoneal lymphadenopathy that was concerning for metastatic disease or lymphoma. He subsequently underwent PET CT but per pt scan was negative and has not had f/u for the same since. Denies constitutional symptoms of unintentional weight loss and night sweats. Denies personal history of cancer. There is family history of cancer. Sister had breast cancer and uncle had throat cancer. -CBC on admission revealed WBC 23.3, Hgb 16.7. plt 157,000. Differential revealed lymphocytosis, with absolute lymphocytes of 18.8. Pathologist notes reported increased smudge cells. Differential includes CLL/SLL vs lymphoma -CT neck and CAP with contrast for further evaluation. Scans revealed abnormal lymphadenopathy within abdomen with splenomegaly, and lymphadenopathy within chest and neck. -LDH mildly elevated at 262. B and T cell flow cytometry resulted consistent with CLL. Discussed with pt that with his findings of prominent lymphadenopathy and less significant abnormalities seen on CBC with mostly lymphocytosis, and no anemia or significant thrombocytopenia noted, this would be more consistent with SLL. Although this would not change prognosis or treatment plan. For now since patient is feeling well and back pain has almost completely resolved, and unsure if pain was caused by a back strain from work, will plan to f/u in clinic in the next cpl weeks. At that time we will further discuss treatment options vs observation. Discussed with pt that if he remains asymptomatic and counts remain stable he can be started in observation and does not need to start active treatment. Patient and family verbalized understanding and were agreeable with POC Dr. Crumpests: I have seen and examined pt, performed H&P, developed impression and plan of care. Discussed with dictator. Agree with documentation, dictated as a scribe.
--- NOTE | 2023-11-27 04:25 | P.DS ---
Providers Date of admission: 11/24/23 10:31 Expected date of discharge: 11/25/23 Attending physician: Stephenie Tsang Consults: 11/21/23 11:13 Consult Physician Urgent Consulting Provider: Josh Berger Consult Reason/Comments: Diffuse lymphadenopathy on CT scan concerning for lymphoma Do you want consulting provider notified?: Yes Primary care physician: Physician Nonstaff Hospital Course: Final diagnosis Right sided back pain, flank pain radiating down to groin with extensive mesenteric, retroperitoneal and inguinal lymphadenopathy along with leukocytosis with predominant lymphocytes. Concerning for CLL versus SLL/lymphoma. Prior history of abdominal lymphadenopathy and PET scan. Patient was told negative for malignancy. Hypertension Diet-controlled diabetes Obesity with a BMI of 30.0 GI and DVT prophylaxis. With PPI and heparin subcu Full code Discharge disposition Patient is being discharged in a stable condition with guarded prognosis to home. Patient will follow-up with his physician out of [place] in the outpatient setting upon discharge. Patient is to also follow-up with oncology outpatient as scheduled. Total time taken is greater than 35 minutes. Hospital course This is a 53-year-old male who was recently admitted with right-sided back pain along with flank pain and noted to have extensive lymphadenopathy with leukocytosis being closely monitored. Patient underwent further lab testing with oncology following consistent for CLL versus SLL. Ongoing studies pending at this time with no plans of biopsy. Oncology recommending outpatient follow- up to discuss observation and if necessary treatments if patient becomes symptomatic. Patient currently denies pain and reports to feeling improved. Patient has been cleared by oncology for discharge today. Please refer to oncology notes for further HPI. Currently no reports of chest pain, shortness of breath, or palpitations. Patient is afebrile. No reports of nausea or vomiting and patient is tolerating diet. Patient will be discharged home today. Guarded prognosis Physical exam: Gen: This is a 53-year-old male who is awake, alert and oriented x 3, well- developed, well-nourished, obese HEENT: Head is atraumatic, normocephalic. Pupils equal, round. Sclerae is anicteric. NECK: Supple. No JVD. No lymphadenopathy. No thyromegaly. LUNGS: Clear to auscultation. No wheezes or rhonchi. No intercostal retractions. HEART: Regular rate and rhythm. No murmur. ABDOMEN: Soft. Bowel sounds are present. No masses. No tenderness. EXTREMITIES: No pedal edema. No calf tenderness. NEUROLOGICAL: Patient is awake, alert and oriented x3. Cranial nerves 2 through 12 are grossly intact. Please refer to medication reconciliation sheet for a list of medications. The impression and plan of care has been dictated by Oanh Polanco, Nurse Practitioner as directed. Dr. Sharan MD I have performed a history and examination and MDM of this patient, discussed the same with the dictator, and agree with the dictator's assessment and plan as written ,documented as a scribe. Based on total visit time, I have performed more than 50% of the visit. Patient Condition at Discharge: Stable Plan - Discharge Summary Discharge Rx Participant: No New Discharge Prescriptions: New Acetaminophen Tab [Tylenol] 650 mg PO Q6HR PRN tab PRN Reason: Mild Pain Or Fever > 100.5 Discharge Medication List Acetaminophen Tab [Tylenol] 650 mg PO Q6HR PRN tab 11/25/23 [Rx] Follow up Appointment(s)/Referral(s): Josh Berger [STAFF PHYSICIAN] - 1 Week (The office will call with a follow up appointment) Nonstaff,Physician [Primary Care Provider] - 1-2 days Activity/Diet/Wound Care/Special Instructions: Activity limited until follow-up Follow-up with primary care provider on discharge Follow-up with oncology as discussed Discharge Disposition: HOME SELF-CARE
== END 2023-11-25 12:15 | disposition home or self-care (01) ==
LOC: EC 09:57 → 5NMEDONC 11:11 → INTOOBSV 11-24 10:31 → OBSVTOIN 11-24 10:31 → UNDODISIN 11-25 12:15
PROVIDERS: ADMIT Hospitalist; ATTEND Hospitalist
DX: R59.0 Localized enlarged lymph nodes (principal); D72.820 Lymphocytosis (symptomatic); D72.829 Elevated white blood cell count, unspecified; R16.1 Splenomegaly, not elsewhere classified; M54.50 Low back pain, unspecified; R10.30 Lower abdominal pain, unspecified; E11.9 Type 2 diabetes mellitus without complications; I10 Essential (primary) hypertension; E66.9 Obesity, unspecified; Z68.30 Body mass index [BMI] 30.0-30.9, adult; Z86.16 Personal history of COVID-19; Z80.8 Family history of malignant neoplasm of other organs or systems; Z80.3 Family history of malignant neoplasm of breast
CPT/HCPCS: 96360; 96361; 96372 ×6; 99285; 36415; 80053 ×2; 80048; 88184; 88185; 83615; 85025 ×3; 81001; 70491; 71260; 74177; G0378 ×5; J1644 ×5; Q9967